=== PATIENT | female | born 1950 | race Caucasian/White ===

== ENCOUNTER 2016-12-05 13:10 | Inpatient (IN) | payer MEDICARE, BC, OTHER ==
[~2016-12-05] VITALS: Ht 160 cm; Wt 94.4 kg
[~2016-12-05 13:10] MED LIST: 1-ME1LIQ PO; CEFU1TAB20 PO; COZA100T PO; FEXO180 PO; FOLI1 PO; GUAI600 PO; LEXA20TA PO; PRED20 PO; PROT40TA PO; RIVA20 PO; VENTAER INH
[2016-12-05 13:12] VITALS: BP 182/84; PULSE 93; RESP 28; TEMP 98.4; O2SAT 100
[2016-12-05] MEDS ORDERED: ESCI20TA PO (13:57)
[2016-12-05] MEDS ORDERED: LOSA100T PO (13:57)
[2016-12-05] MEDS ORDERED: XARE20TA PO (13:57)
[2016-12-05] MEDS ORDERED: FEXO60TA36 PO (13:57)
[2016-12-05] MEDS ORDERED: SODIUM CHLOR 0.9% 1000 ML INJ 1,000 ML IV ONE (14:15)
--- NOTE | 2016-12-05 14:25 | PD ---
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 Maxi Howe with Nivolumab every 3 weeks, presents to ER with complaints of a lightheaded and tingling sensation that she gets to her head and radiates down to her chest, arms and down to her legs. Patient reports that these episodes last about 2 seconds, reports that she feels weak and dizzy after these episodes and needs to rest. Reports that she began having these episodes 1 month ago, reports that she has about 2 episodes per day. Patient reports that today, should 5 episodes of this, reports that she became scared so she came to the ER for evaluation. Patient also endorses that she has been having problems with her memory, reports overall deterioration of her memory. Patient reports that she followed up with Dr. Maxi Howe last week and had an MRI of her brain on December 02, 2016 which is currently pending [facility] Past Medical History Hx Anticoagulant Therapy: Yes (xarelto) Asthma: Yes Depression: Yes Cancer: Yes (stage IV lung cancer) Cardiovascular Problems: Yes High Cholesterol: Yes Chemotherapy: Yes (lung cancer) COPD: Yes Diminished Hearing: No Hypertension: Yes Musculoskeletal: Yes (lytic lesions) Neurologic: Yes (SCIATIC NERVE) Respiratory: Yes (copd) Immunizations Current: No Menopausal: Yes Past Surgical History Cholecystectomy: Yes Hysterectomy: Yes Social History Alcohol Use: No Tobacco Use: No Substance Use: No Allergies-Medications (Allergen,Severity, Reaction): Coded Allergies: Penicillin (Verified Allergy, Severe, 12/05/16) Reported Meds & Prescriptions Reported Meds & Active Scripts Active Reported Allergy Relief (Fexofenadine HCl) 60 Mg Tablet 180 Mg PO DAILY Losartan (Losartan Potassium) 100 Mg Tab 100 Mg PO DAILY Escitalopram (Escitalopram Oxalate) 20 Mg Tab 20 Mg PO DAILY Xarelto (Rivaroxaban) 20 Mg Tab 20 Mg PO DAILY Review of Systems General / Constitutional: No: Fever Eyes: No: Visual changes HENT: Positive: Lightheadedness, No: Headaches Cardiovascular: No: Chest Pain or Discomfort Respiratory: No: Shortness of Breath Gastrointestinal: No: Abdominal Pain Genitourinary: No: Dysuria Musculoskeletal: No: Pain Skin: No Rash Neurologic: Positive: Weakness, Paresthesia Psychiatric: No: Depression Endocrine: No: Polydipsia Hematologic/Lymphatic: No: Easy Bruising Physical Exam Narrative GENERAL: mild distress, patient upset at bedside SKIN: Focused skin assessment warm/dry. HEAD: Atraumatic. Normocephalic. EYES: Pupils equal and round. No scleral icterus. No injection or drainage. ENT: No nasal bleeding or discharge. Mucous membranes pink and moist. NECK: Trachea midline. No JVD. CARDIOVASCULAR: Regular rate and rhythm. No murmur appreciated. RESPIRATORY: No accessory muscle use. Clear to auscultation. Breath sounds equal bilaterally. GASTROINTESTINAL: Abdomen soft, non-tender, nondistended. Hepatic and splenic margins not palpable. MUSCULOSKELETAL: No obvious deformities. No clubbing. No cyanosis. No edema. NEUROLOGICAL: Awake and alert. No obvious cranial nerve deficits. Motor grossly within normal limits. Normal speech. PSYCHIATRIC: patient anxious and tearful Data Data Last Documented VS Vital Signs Date Time Temp Pulse Resp B/P Pulse Ox O2 Delivery O2 Flow Rate FiO2 12/05/16 13:50 77 17 94 Room Air 12/05/16 13:12 98.4 182/84 Orders Electrocardiogram (12/05/16 13:23) Complete Blood Count With Diff (12/05/16 13:23) Basic Metabolic Panel (Bmp) (12/05/16 13:23) Ckmb (Isoenzyme) Profile (12/05/16 13:23) Troponin I (12/05/16 13:23) Chest, Single Ap (12/05/16 13:23) Prothrombin Time / Inr (Pt) (12/05/16 13:25) Act Partial Throm Time (Ptt) (12/05/16 13:25) Urinalysis - C+S If Indicated (12/05/16 14:02) Sodium Chlor 0.9% 1000 Ml Inj (Ns 1000 M (12/05/16 14:15) Dexamethasone Inj (Decadron Inj) (12/05/16 15:00) Type And Screen (12/05/16 14:51) Vascular Poc Ultrasound (12/05/16 ) MDM Medical Decision Making Medical Screen Exam Complete: Yes Emergency Medical Condition: Yes Interpretation(s) Vital Signs Date Time Temp Pulse Resp B/P Pulse Ox O2 Delivery O2 Flow Rate FiO2 12/05/16 13:50 77 17 94 Room Air 12/05/16 13:12 98.4 93 28 182/84 100 Room Air Differential Diagnosis Differential includes ICH, seizure, metastatic disease, electrolyte abnormality , acs, arrhythmia Narrative Course Patient is an unfortunate 66 year old female with history of metastatic lung cancer, presents to emergency room with complaints of a tickling sensation that goes from her head to her chest to his arms and legs which lasts about 2 seconds at a time. Patient reports that symptoms have been ongoing for the past month and she has 2 episodes per day, reports that she had 5 episodes today. Patient reports that her doctor and oncologist Dr. Maxi Howe who ordered an MRI of her brain with and without contrast - she has not received results yet: RADS MRI was obtained: MRI from December 02, 2016 shows extensive metastic deposits in the cerebellum and cerebrum. There is a 1.4cm lesion in the right frontal lobe shows associated hemorrhage Call made to Dr. Maxi Howe Patient currently taking Xarelto 20mg daily for PE Case reviewed with Dr. Pina Perera with oncology, request decadron 4mg q 8 hours - will let Dr. Howe know of mri reports and admission Case reviewed with Dr. Negro (neurosurgery) - recommends supportive treatment at this time as patient does have extensive metastatic deposits and her cerebellum and cerebrum. Plan to admit to [facility] case reviewed with Dr. Gustafson who accepts pt to service Critical Care Narrative Aggregate critical care time was 30 minutes. Time to perform other separately billable procedures was not included in the critical care time. My time did not include minutes spent treating any other patients simultaneously or on activities that did not directly contribute to the patient's treatment. The services I provided to this patient were to treat and/or prevent clinically significant deterioration that could result in: , decompensation, deterioration I provided critical care services requiring my management, as noted below: Chart data review, documentation time, medication orders and management, vital sign assessments/reviewing monitor data, ordering and reviewing lab tests, ordering and interpreting/reviewing x-rays and diagnostic studies, care of the patient and discussion of the patient with the admitting physicians. Diagnosis Primary Impression: Intracranial hemorrhage Additional Impression: Metastatic cancer to brain Admitting Information Admitting Physician Requests: Josselyn Lamb DO Dec 05, 2016 14:25
[2016-12-05] MEDS ORDERED: DEXAMETHASONE SOD PHOS 4 MG/ML VIAL IV PUSH ONE (15:00)
[2016-12-05 15:15] LABS: BLOOD, URINE NEG (NEG); COMMENT (UR) CULT NOT INDICATED; CULTURE IF INDICATED CULT NOT INDICATED; GLUCOSE,URINE NEG (NEG); KETONE, URINE NEG (NEG); NITRITE,URINE NEG (NEG); PH, URINE 6.5 (5.0-8.5); SQUAMOUS EPITHELIAL CELL URINE 1 /hpf (0-5); URINE COLOR LIGHT-YELLOW (YELLW/STRAW)
[2016-12-05] MEDS ORDERED: LORazepam 2 MG/ML VIAL IV PUSH ONE (15:15)
[2016-12-05 15:24] LABS: AUTOMATED NEUTROPHIL # 5.4 TH/MM3 (1.8-7.7); BASOPHIL % 0.4 % (0.0-2.0); EOSINOPHIL # 0.1 TH/MM3 (0-0.4); EOSINOPHIL % 2.1 % (0.0-4.0); HEMATOCRIT 30.2 % (35.0-46.0); HEMO FLAGS DIFF FINAL; LYMPH % 6.7 % (9.0-44.0); LYMPHOCYTE # 0.4 TH/MM3 (1.0-4.8); MEAN CELL VOLUME 96.6 FL (80.0-100.0); MEAN CORPUSCULAR HGB CONC 34.2 % (32.0-36.0); MONO % 8.9 % (0.0-8.0); NEUT % 81.9 % (16.0-70.0); PLATELET COUNT 203 TH/MM3 (150-450); RED BLOOD COUNT 3.12 MIL/MM3 (4.00-5.30); RED CELL DISTRIBUTION WIDTH 15.7 % (11.6-17.2); WHITE BLOOD COUNT 6.6 TH/MM3 (4.0-11.0)
[2016-12-05 15:38] LABS: APTT (PATIENT) 35.2 SEC (24.3-30.1); INTERNATIONAL NORMALIZED RATIO 1.4 RATIO; PROTHROMBIN TIME - PATIENT 15.4 SEC (9.8-11.6)
--- NOTE | 2016-12-05 15:39 | RADRPT ---
EXAM DATE/TIME: 12/05/2016 14:43 [facility] COMPARISON: CHEST SINGLE AP, September 24, 2012, 10:12. CT THORAX W/O CONTRAST, October 06, 2015, 11:11. INDICATIONS : Chest pain MEDICAL HISTORY : Carcinoma, lung. SURGICAL HISTORY : Infusaport ENCOUNTER: Initial ACUITY: 1 day PAIN SCORE: 4/10 LOCATION: chest FINDINGS: Right IJ [id number] is present with tip overlapping the expected region of the SVC. Abdomen josé manuel us sclerotic bony metastatic lesions involving the entire visualized bony structures. It is difficult to exclude pulmonary nodules. Heart and mediastinum are unremarkable for technique. CONCLUSION: Extensive bony metastatic disease and lung nodules are difficult to exclude. Iftikhar Black MD on December 05, 2016 at 15:36 Board Certified Radiologist. This report was verified electronically.
[2016-12-05 15:56] LABS: ANION GAP 9 MEQ/L (5-15); BICARBONATE 24.1 MEQ/L (21.0-32.0); BLOOD UREA NITROGEN 19 MG/DL (7-18); CHLORIDE 105 MEQ/L (98-107); CREATINE KINASE 144 U/L (26-192); GLOMERULAR FILTRATION RATE 43 ML/MIN (>89); SODIUM (NA) 138 MEQ/L (136-145)
[2016-12-05 15:58] LABS: POTASSIUM 5.3 MEQ/L (3.5-5.1)
[2016-12-05 16:12] LABS: CKMB 0.5 NG/ML (0.5-3.6)
--- NOTE | 2016-12-05 16:37 | RADRPT ---
EXAM DATE/TIME: 12/05/2016 16:21 [facility] COMPARISON: CHEST SINGLE AP, December 05, 2016, 14:43. INDICATIONS : Tingling in throat, arm and chest. RADIATION DOSE: 31.47 CTDIvol (mGy) MEDICAL HISTORY : Cardiovascular disease. Hypertension. Carcinoma, lung.chemo SURGICAL HISTORY : Hysterectomy. Colostomy. ENCOUNTER: Initial ACUITY: 1 day PAIN SCALE: 2/10 LOCATION: cranial TECHNIQUE: Multiple contiguous axial images were obtained of the head. Using automated exposure control and adj ustment of the mA and/or kV according to patient size, radiation dose was kept as low as reasonably a chievable to obtain optimal diagnostic quality images. DICOM format image data is available electro nically for review and comparison. FINDINGS: There is an approximate 1.2 cm sclerotic metastatic focus involving the clivus. There are multip le areas of vasogenic edema involving the left cerebellum, bilateral frontal lobes and there is one a osvaldo in right frontal lobe which measures 9 mm could potentially be either slight hemorrhage within a lesion or possibly prominent gyri surrounded by edema. Metastatic disease is suspected. There is no m ass effect. CONCLUSION: There is bony metastatic disease to clivus and multiple lesions in the brain highly suspicious for me tastatic disease one of them in right frontal area could be hemorrhagic. Iftikhar Black MD on December 05, 2016 at 16:33 Board Certified Radiologist. This report was verified electronically.
--- NOTE | 2016-12-05 17:34 | HHI.HP ---
[facility] Maxi Hoew MD Admission Diagnosis Intracranial hemorrhage with metastic disease to brain Diagnoses: Chief Complaint: Tingling sensation Travel History International Travel<30 Days: No Contact w/Intl Traveler <30 Da: No Traveled to Known Affected Are: No History of Present Illness Patient is a very pleasant 66-year-old female right handed with history of metastatic lung cancer stage IV diagnosed in August 2012 with bone metastases, hypertension, pulmonary embolism on Xarelto, depression was pretty much very independent with her the past 3-4 weeks now has been complaining of tingling sensation from the shoulder radiating to the legs with occurring in flashes lasting for a few minutes associated with some chills. Patient denies any loss of consciousness. Patient with COPD complaining of occasional cough but not O2 dependent actually getting stronger. In addition to above complaints patient is also complaining of increasing memory loss. On evaluation here head CT shows mass with some hemorrhagic transformation transformation around it. Patient admitted for further evaluation. Patient looks neurological neurologically well. Review of Systems Constitutional: DENIES: Fever, Weight loss, Chills, Change in appetite Eyes: DENIES: Blurred vision, Double Vision Ears, nose, mouth, throat: DENIES: Tinnitus, Ear Pain, Epistaxis, Odynophagia Respiratory: DENIES: Cough, Hemoptysis, Sputum production, Shortness of breath Cardiovascular: DENIES: Chest pain, Palpitations, Dyspnea on Exertion, Lower Extremity Edema, Orthopnea Gastrointestinal: DENIES: Black stools, Bloody stools, Difficulty Swallowing, Anorexia Genitourinary: DENIES: Urgency, Hematuria, Vaginal discharge Musculoskeletal: DENIES: Joint pain, Stiffness Integumentary: DENIES: Pruritus Hematologic/lymphatic: DENIES: Bruising Immunologic/allergic: DENIES: Urticaria Neurologic: DENIES: Headache, Speech Problems, Tremor Psychiatric: DENIES: Suicidal Ideation, Homicidal Ideation Past Family Social History Past Medical History Depression Metastatic lung cancer Pulmonary embolism Past Surgical History Hysterectomy Ovarian resection Gallbladder surgery Bilateral carpal tunnel surgery Plantar fasciitis surgery Cataract surgery Reported Medications Losartan 100 mg daily Xarelto 20 mg daily for the past 4 years Lexapro 20 mg daily Hamida when necessary Allergies: Coded Allergies: Penicillin (Verified Allergy, Severe, 12/05/16) Family History Noncontributory Physical Exam Vital Signs Vital Signs Date Time Temp Pulse Resp B/P Pulse Ox O2 Delivery O2 Flow Rate FiO2 12/05/16 13:50 77 17 94 Room Air 12/05/16 13:12 98.4 93 28 182/84 100 Room Air Physical Exam GENERAL: This is a well-nourished, well-developed patient, in no apparent distress. SKIN: No rashes, ecchymoses or lesions. Cool and dry. HEAD: Atraumatic. Normocephalic. No temporal or scalp tenderness. EYES: Pupils equal round and reactive. Extraocular motions intact. No scleral icterus. No injection or drainage. ENT: Nose without bleeding, purulent drainage or septal hematoma. Throat without erythema, tonsillar hypertrophy or exudate. Uvula midline. Airway patent. NECK: Trachea midline. No JVD or lymphadenopathy. Supple, nontender, no meningeal signs. CARDIOVASCULAR: Regular rate and rhythm without murmurs, gallops, or rubs. RESPIRATORY: Clear to auscultation. Breath sounds equal bilaterally. No wheezes , rales, or rhonchi. GASTROINTESTINAL: Abdomen soft, non-tender, nondistended. No hepato-splenomegaly , or palpable masses. No guarding. MUSCULOSKELETAL: Extremities without clubbing, cyanosis, or edema. No joint tenderness, effusion, or edema noted. No calf tenderness. Negative Homans sign bilaterally. NEUROLOGICAL: Awake and alert. Cranial nerves II through XII intact. Motor and sensory grossly within normal limits. Five out of 5 muscle strength in all muscle groups. Normal speech. Laboratory Laboratory Tests Test 12/05/16 12/05/16 14:30 14:55 Urine Color LIGHT-YELLOW Urine Turbidity CLEAR Urine pH 6.5 Urine Specific Porum 1.008 Urine Protein TRACE Urine Glucose (UA) NEG Urine Ketones NEG Urine Occult Blood NEG Urine Nitrite NEG Urine Bilirubin NEG Urine Urobilinogen LESS THAN 2.0 Urine Leukocyte Esterase NEG Urine RBC LESS THAN 1 Urine WBC LESS THAN 1 Urine Squamous Epithelial 1 Cells Microscopic Urinalysis Comment CULT NOT INDICATED White Blood Count 6.6 Red Blood Count 3.12 Hemoglobin 10.3 Hematocrit 30.2 Mean Corpuscular Volume 96.6 Mean Corpuscular Hemoglobin 33.0 Mean Corpuscular Hemoglobin 34.2 Concent Red Cell Distribution Width 15.7 Platelet Count 203 Mean Platelet Volume 6.6 Neutrophils (%) (Auto) 81.9 Lymphocytes (%) (Auto) 6.7 Monocytes (%) (Auto) 8.9 Eosinophils (%) (Auto) 2.1 Basophils (%) (Auto) 0.4 Neutrophils # (Auto) 5.4 Lymphocytes # (Auto) 0.4 Monocytes # (Auto) 0.6 Eosinophils # (Auto) 0.1 Basophils # (Auto) 0.0 CBC Comment DIFF FINAL Differential Comment Prothrombin Time 15.4 Prothromb Time International 1.4 Ratio Activated Partial 35.2 Thromboplast Time Sodium Level 138 Potassium Level 5.3 Chloride Level 105 Carbon Dioxide Level 24.1 Anion Gap 9 Blood Urea Nitrogen 19 Creatinine 1.25 Estimat Glomerular Filtration 43 Rate Random Glucose 101 Calcium Level 9.0 Total Creatine Kinase 144 Creatine Kinase MB 0.5 Troponin I LESS THAN 0.02 Blood Type O POSITIVE Result Diagram: 12/05/16 1455 12/05/16 1455 Imaging Last Impressions Chest X-Ray 12/05/16 1323 Signed Impressions: Service Date/Time: Monday, December 05, 2016 14:43 - CONCLUSION: Extensive bony metastatic disease and lung nodules are difficult to exclude. Iftikhar Black MD Head CT 12/05/16 0000 Signed Impressions: Service Date/Time: Monday, December 05, 2016 16:21 - CONCLUSION: There is bony metastatic disease to clivus and multiple lesions in the brain highly suspicious for metastatic disease one of them in right frontal area could be hemorrhagic. Iftikhar Black MD Assessment and Plan Assessment and Plan 66 year old female right handed with Stage IV lung cancer with brain metastases with suspicious small amount of hemorrhage Increasing memory loss neuro exam with generalized weakness but- mainly nonfocal Neurology consult Will hold Xarelto. Check neuro vital signs every shift. Patient started on dexamethasone 4 mg every 8. Consult hematology-discussed with Dr. Perera Get an EEG HypertensioN Acute kidney injury Mild hyperkalemia Gentle fluids. Clonidine when necessary Hold Losartan 100 mg daily. For now due to mildly elevated potassium History of depression. Continue Lexapro in the next few days. Discussed with patient SCD s Physician Certification 2 Midnight Certification Type: Admission for Inpatient Services Order for Inpatient Services The services are ordered in accordance with Medicare regulations or non- Medicare payer requirements, as applicable. In the case of services not specified as inpatient-only, they are appropriately provided as inpatient services in accordance with the 2-midnight benchmark. Estimated LOS (days): 3 days is the estimated time the patient will need to remain in the hospital, assuming treatment plan goals are met and no additional complications. Post-Hospital Plan: Not yet determined Isabel Gustafson MD Dec 05, 2016 17:34
[2016-12-05] MEDS: SODIUM CHLOR 0.9% 1000 ML INJ 1,000 ML IV SCH (18:00)
[2016-12-05] MEDS ORDERED: cloNIDine HCL 0.1 MG TAB PO PRN (18:00)
[2016-12-05 18:45] VITALS: BP 133/75; PULSE 85; RESP 19; O2SAT 99
[2016-12-05 19:30] VITALS: BP 150/67; PULSE 79; RESP 16; O2SAT 95
[2016-12-05 21:00] VITALS: BP 149/73; PULSE 83; RESP 18; TEMP 98.1; O2SAT 96
[2016-12-05] MEDS: levETIRAcetam 500 MG TAB PO SCH (21:01)
[2016-12-05 21:24] VITALS: PULSE 85
[2016-12-05 21:30] VITALS: PULSE 83
[2016-12-05] MEDS: DEXAMETHASONE SOD PHOS 4 MG/ML VIAL IV PUSH SCH (22:40)
--- NOTE | 2016-12-05 22:41 | MB ---
cc: J CARLOS ABREU M.D. DATE OF CONSULTATION 12/05/2016 HISTORY The patient is a 66-year-old woman with a history of known lung cancer with mets to the left humerus, spine, pelvis who had cataracts done recently and she has actually had cancer known for 7 years. The last 6 weeks she has had about two to five times a day a feeling of tingling sensation which seems to start in her neck and go down her legs, and some nausea after that, might last about 30 seconds. No odd smells, tastes or gloria vu. Never had a definite grand mal seizure. She has not had any headaches. She evidently had an MRI last which showed mets to the brain. PAST MEDICAL HISTORY 1. She has known metastatic lung cancer stage IV. 2. Hypertension. 3. Pulmonary embolism on Xarelto. 4. Depression. 5. She has some COPD, not O2 dependent. MEDICATIONS 1. Losartan. 2. Xarelto. 3. Lexapro. 4. Hamida. REVIEW OF SYSTEMS Denied , diabetes, hypercholesterolemia, DC, CABG, stenting, heart problems, renal, hepatic or thyroid disease, lupus, ulcer, seizure or stroke. SOCIAL HISTORY Not a smoker, although she was remotely. She is not a drinker. Lives with her . FAMILY HISTORY Positive cancer in her mother. Negative for seizure or stroke. PHYSICAL EXAMINATION VITAL SIGNS: Afebrile. 93, 28, 182/84 to 150/67. NECK: There were no carotid bruits. CARDIOVASCULAR: Heart was regular rhythm. I do not detect a murmur. NEUROLOGIC: Pupils are equal, status post cataracts. Right disk is sharp. Visual dhillon are full. Extraocular intact without nystagmus. Face is symmetric with normal station. Tongue was midline. No drift. Normal strength in upper and lower extremities bilaterally. Toes downgoing bilaterally. DTRs trace throughout. Pinprick is intact throughout. She is not ataxic on [id number]. Speech is fluent. She is not aphasic. Knows the day of the week. LABORATORY DATA CBC is normal. UA is negative. Basic metabolic profile potassium 5.3 otherwise normal. GFR is 1.2. Troponin negative. CEA elevated at 60. Thyroid normal. PTT 35. IMAGING A chest x-ray bony mets, extensive, lung nodules difficult to exclude. CT scan of brain a right frontal edema consistent with met. Done without contrast, 1.2 cm sclerotic metastatic lesion to the clivus. Left cerebellum, bilateral frontal lobe and right frontal lobe edema slight hemorrhage within that. Cannot pull up her MRI from recently. IMPRESSION Possible seizures ____ out of the mets. I cannot pull up her MRI done at [place] here in the hospital. If she has not had an MRI of her cervical and thoracic and lumbosacral spine recently I would recommend that with the mets. Make sure there is no impending cord compression. For now start her on some Keppra and check an EEG. We should have oncology see her here. She will need some XRT. This is the first known brain mets that she has had. Also start her on some Decadron with the edema in the right frontal lobe. She is of course at increased risk for hemorrhage into the brain on the Xarelto, whether that needs to be continued at this time, I would defer to the med team. Overall she actually looks fairly well neurologically and I would defer to the oncology team if she needs further MRIs of her spine. MD KYLAH Miller/JENNIFER /7:59 PM /10:29 PM
[2016-12-06] VITALS (8 sets, daily range): BP systolic 127–147; BP diastolic 62–74; PULSE 61–89; RESP 16–20; TEMP 95.9–98; O2SAT 95–97
[2016-12-06 05:44] LABS: ALKALINE PHOSPHATASE 63 U/L (45-117); ALT (GPT) 13 U/L (10-53); ANION GAP 8 MEQ/L (5-15); AST (GOT) 12 U/L (15-37); BICARBONATE 24.6 MEQ/L (21.0-32.0); BLOOD UREA NITROGEN 22 MG/DL (7-18); CHLORIDE 110 MEQ/L (98-107); GLOMERULAR FILTRATION RATE 41 ML/MIN (>89); SODIUM (NA) 143 MEQ/L (136-145); TOTAL BILIRUBIN ADULT 0.2 MG/DL (0.2-1.0)
[2016-12-06] MEDS: DEXAMETHASONE SOD PHOS 4 MG/ML VIAL IV PUSH SCH (06:04)
--- NOTE | 2016-12-06 06:57 | MB ---
cc: OPHELIA MUKHERJEE DATE OF 1950. DATE OF CONSULTATION December 05, 2016 REASON FOR CONSULTATION Patient with a history of metastatic lung cancer who presents with mental status changes. HISTORY OF PRESENT ILLNESS This is a 66-year-old female who has a history of jlr-krujz-xqew lung cancer. This is metastatic disease. She has undergone multiple lines of treatment. She is currently being treated with IV nivolumab which is an immunotherapy drugs. She has been on Opdivo and nivolumab for the past two months. She sees Dr. Maxi Howe in the oncology clinic and was last seen on 12/01/2016. She was diagnosed with metastatic jno-smabn-sbgd lung cancer in September of 2012 after she developed bilateral pulmonary emboli. Imaging confirmed metastatic disease. She was treated with carboplatin, Alimta and Avastin and then she was on maintenance therapy with Alimta and Avastin. She then developed progressive disease and received radiation to the L3 area into the left acetabulum. She has been receiving IV nivolumab. On her recent visit in the clinic she complained of a tingling sensation in the base of her head, going down to her spine as well as memory problems and MRI of the brain with and without contrast was ordered. The patient now presents to the emergency room with worsening of these symptoms. She had CT scan of the brain with contrast. This revealed an approximately 1.2 cm sclerotic metastatic focus involving the clivus. There were multiple areas of vasogenic edema involving the left cerebellum and bilateral frontal lobes. There was one area in the right frontal lobe which measured 9 mm. The patient is currently awake and alert. She does not have any focal symptoms. She denies any headaches. She has been experiencing intermittent nausea. REVIEW OF SYSTEMS A comprehensive 14-point review of systems was completed which is negative except as described in the HPI. PAST MEDICAL HISTORY 1. Edd-murkf-qpai lung cancer which is metastatic. 2. History of depression. 3. Pulmonary embolism. PAST SURGICAL HISTORY 1. Hysterectomy. 2. Ovarian resection. 3. Gallbladder surgery. 4. Carpal tunnel surgery. 5. Plantar fasciitis. 6. Cataract surgery. MEDICATIONS 1. Losartan 100 mg daily. 2. Xarelto 20 mg p.o. daily. 3. Lexapro 20 mg daily. 4. Hamida as needed. ALLERGIES SHE IS ALLERGIC TO PENICILLIN. FAMILY HISTORY Reviewed and it is noncontributory to this admission. SOCIAL HISTORY She does not smoke cigarettes. No illicit drug use. No alcohol. She is an ex-smoker. PHYSICAL EXAMINATION VITAL SIGNS: Blood pressure is 149/73, pulse is in the 80s, temperature is 98.1, O2 sats are 95% on room air. GENERAL: Well-developed, well-nourished female in no apparent distress. HEENT: Pupils are equal, round, reactive to light. EOMI. No oral thrush. No oral lesions. NECK: Supple. No JVD, no bruits. No lymphadenopathy. CHEST: Clear to auscultation bilaterally. CARDIAC: S1-S2. Regular rate and rhythm. ABDOMEN: Soft, nontender, nondistended. Bowel sounds are present. EXTREMITIES: Without any edema, erythema or cyanosis. SKIN: Without any petechiae, lesion or bruises. NEURO: No focal deficits. PSYCHIATRIC: Mood and affect is appropriate. LABORATORY DATA WBC 6.6, hemoglobin 10.3, MCV 96.6, platelet count 203. Serum chemistries show sodium of 138, potassium 5.3, chloride 105, CO2 24.1, BUN is 19, creatinine is 1.25, calcium is 9, total CK is 144. Troponin is less than 0.02. Coags - PT of 115.4, INR 1.4, PTT 35.2. IMAGING STUDIES CT of the head was reviewed. Chest x-ray was also reviewed which showed extensive bony metastatic disease and lung nodules. ASSESSMENT AND PLAN This is a 66-year-old female with a history of Stage IV lung cancer with metastatic disease to the bone who presents with increasing memory problems, generalized weakness and tingling sensations at the base of her head. CT scans and recent MRI shows multiple metastatic lesions to the brain. 1. Multiple metastatic lesions to the brain as demonstrated by the CT scan. She is also has metastatic bony disease to the clivus. I discussed the case with Dr. Alvarez in the emergency department. We will start this patient on dexamethasone 4 mg IV q.8 hours. We will also place her on Keppra for seizure prophylaxis. I have discussed this case with Dr. Shell. The patient is known to him. The patient will need XRT treatments to the brain. I have extensively discussed the situation with the patient. Her family members were present during this conversation. The patient is currently neurologically intact. I have explained to her that once she is stabilized, we can probably discharge her home and she can receive radiation treatment as an outpatient. Dr. Shell will see the patient tomorrow. She will need restaging scans to assess for metastatic disease in the chest, abdomen and pelvis. I will defer further management of her cancer to her oncologist, Dr. Howe. 2. Anemia which is normocytic. Obtain anemia studies. Thank you for allowing me to participate in the care of this patient. I will continue to follow this patient along. Dr. Howe will return on Tuesday to assume care of this patient. MD BRIDGET Last/AILIN /11:39 PM /6:47 AM
--- NOTE | 2016-12-06 08:41 | HHI.PR ---
Objective Vital Signs Date Time Temp Pulse Resp B/P Pulse Ox O2 Delivery O2 Flow Rate FiO2 12/06/16 04:00 96.2 89 17 147/67 95 12/06/16 04:00 61 12/06/16 00:02 71 12/06/16 00:00 98.0 76 18 141/67 97 12/05/16 21:30 83 12/05/16 21:24 85 12/05/16 21:00 98.1 83 18 149/73 96 12/05/16 19:30 79 16 150/67 95 Room Air 12/05/16 18:45 85 19 133/75 99 Room Air 12/05/16 13:50 77 17 94 Room Air 12/05/16 13:12 98.4 93 28 182/84 100 Room Air I/O 12/05/16 12/05/16 12/05/16 12/06/16 12/06/16 12/06/16 07:00 15:00 23:00 07:00 15:00 23:00 Intake Total 240 ml 1274 ml Balance 240 ml 1274 ml Intake Oral 240 ml 480 ml IV Total 794 ml # Voids 2 1 Result Diagram: 12/05/16 1455 12/06/16 0430 Objective Remarks awake alert nad Assessment and Plan Assessment and Plan imp no more spells on keppra fu eeg see my consult note for recommendations Faisal Mccoy MD Dec 06, 2016 08:41
[2016-12-06] MEDS: PANTOPRAZOLE SOD 40 MG DELAYED RELEASE TAB PO SCH (09:00)
[2016-12-06] MEDS: levETIRAcetam 500 MG TAB PO SCH ×2 (09:41→21:44)
[2016-12-06] MEDS: SODIUM CHLOR 0.9% 1000 ML INJ 1,000 ML IV SCH (09:43)
--- NOTE | 2016-12-06 10:48 | HHI.PR ---
Subjective Remarks feels great no more spells Objective Vitals Vital Signs Date Time Temp Pulse Resp B/P Pulse Ox O2 Delivery O2 Flow Rate FiO2 12/06/16 08:40 96.5 71 16 135/74 95 12/06/16 04:00 96.2 89 17 147/67 95 12/06/16 04:00 61 12/06/16 00:02 71 12/06/16 00:00 98.0 76 18 141/67 97 12/05/16 21:30 83 12/05/16 21:24 85 12/05/16 21:00 98.1 83 18 149/73 96 12/05/16 19:30 79 16 150/67 95 Room Air 12/05/16 18:45 85 19 133/75 99 Room Air 12/05/16 13:50 77 17 94 Room Air 12/05/16 13:12 98.4 93 28 182/84 100 Room Air I/O 12/05/16 12/05/16 12/05/16 12/06/16 12/06/16 12/06/16 06:59 14:59 22:59 06:59 14:59 22:59 Intake Total 240 ml 1274 ml Balance 240 ml 1274 ml Intake Oral 240 ml 480 ml IV Total 794 ml # Voids 2 1 Result Diagram: 12/05/16 1455 12/06/16 0430 Imaging Last Impressions Chest X-Ray 12/05/16 1323 Signed Impressions: Service Date/Time: Monday, December 05, 2016 14:43 - CONCLUSION: Extensive bony metastatic disease and lung nodules are difficult to exclude. Iftikhar Black MD Head CT 12/05/16 0000 Signed Impressions: Service Date/Time: Monday, December 05, 2016 16:21 - CONCLUSION: There is bony metastatic disease to clivus and multiple lesions in the brain highly suspicious for metastatic disease one of them in right frontal area could be hemorrhagic. Iftikhar Black MD Objective Remarks awake alert, oriented x 3 anicteric lungs clear regular rhythm abdomen soft, nontender extremities no edema neuro exam- unremarkable A/P Assessment and Plan 66 year old female right handed with Stage IV lung cancer with brain metastases with suspicious small amount of hemorrhage Increasing memory loss neuro exam with generalized weakness but- mainly nonfocal Xarelto.discontinued Check neuro vital signs every shift. Patient started on dexamethasone [address] Howe ff XRT- Dr. Shell consulted Get an EEG HypertensioN Acute kidney injury Mild hyperkalemia Gentle fluids. Clonidine when necessary Hold Losartan 100 mg daily. due to mildly elevated potassium and MARY change to Amlodpine 5 mg po daily History of depression. Continue Excitalopram Discussed with patient SCD s Isabel Gustafson MD Dec 06, 2016 10:48
[2016-12-06] MEDS ORDERED: PILL SPLITTER OTHER PRN (11:30)
--- NOTE | 2016-12-06 13:04 | PD.ONC.PN ---
Subjective Subjective Remarks Afebrile overnight. Patient resting in bed in nad. Denies headache. Objective Data Date Time Temp Pulse Resp B/P Pulse Ox O2 Delivery O2 Flow Rate FiO2 12/06/16 12:56 95.9 78 16 142/74 96 12/06/16 08:40 96.5 71 16 135/74 95 12/06/16 04:00 96.2 89 17 147/67 95 12/06/16 04:00 61 12/06/16 00:02 71 12/06/16 00:00 98.0 76 18 141/67 97 12/05/16 21:30 83 12/05/16 21:24 85 12/05/16 21:00 98.1 83 18 149/73 96 12/05/16 19:30 79 16 150/67 95 Room Air 12/05/16 18:45 85 19 133/75 99 Room Air 12/05/16 13:50 77 17 94 Room Air 12/05/16 13:12 98.4 93 28 182/84 100 Room Air Result Diagram: 12/05/16 1455 12/06/16 0430 Laboratory Results Laboratory Tests Test 12/05/16 12/05/16 12/05/16 12/06/16 14:30 14:55 19:02 04:30 Urine Color LIGHT-YELLOW Urine Turbidity CLEAR Urine pH 6.5 Urine Specific [place] 1.008 Urine Protein TRACE mg/dL Urine Glucose (UA) NEG mg/dL Urine Ketones NEG mg/dL Urine Occult Blood NEG Urine Nitrite NEG Urine Bilirubin NEG Urine Urobilinogen LESS THAN 2.0 MG/DL Urine Leukocyte Esterase NEG Urine RBC LESS THAN 1 /hpf Urine WBC LESS THAN 1 /hpf Urine Squamous Epithelial 1 /hpf Cells Microscopic Urinalysis Comment CULT NOT INDICATED White Blood Count 6.6 TH/MM3 Red Blood Count 3.12 MIL/MM3 Hemoglobin 10.3 GM/DL Hematocrit 30.2 % Mean Corpuscular Volume 96.6 FL Mean Corpuscular Hemoglobin 33.0 PG Mean Corpuscular Hemoglobin 34.2 % Concent Red Cell Distribution Width 15.7 % Platelet Count 203 TH/MM3 Mean Platelet Volume 6.6 FL Neutrophils (%) (Auto) 81.9 % Lymphocytes (%) (Auto) 6.7 % Monocytes (%) (Auto) 8.9 % Eosinophils (%) (Auto) 2.1 % Basophils (%) (Auto) 0.4 % Neutrophils # (Auto) 5.4 TH/MM3 Lymphocytes # (Auto) 0.4 TH/MM3 Monocytes # (Auto) 0.6 TH/MM3 Eosinophils # (Auto) 0.1 TH/MM3 Basophils # (Auto) 0.0 TH/MM3 CBC Comment DIFF FINAL Differential Comment Prothrombin Time 15.4 SEC Prothromb Time International 1.4 RATIO Ratio Activated Partial 35.2 SEC Thromboplast Time Sodium Level 138 MEQ/L 143 MEQ/L Potassium Level 5.3 MEQ/L 4.0 MEQ/L Chloride Level 105 MEQ/L 110 MEQ/L Carbon Dioxide Level 24.1 MEQ/L 24.6 MEQ/L Anion Gap 9 MEQ/L 8 MEQ/L Blood Urea Nitrogen 19 MG/DL 22 MG/DL Creatinine 1.25 MG/DL 1.29 MG/DL Estimat Glomerular Filtration 43 ML/MIN 41 ML/MIN Rate Random Glucose 101 MG/DL 143 MG/DL Calcium Level 9.0 MG/DL 8.7 MG/DL Total Creatine Kinase 144 U/L Creatine Kinase MB 0.5 NG/ML Troponin I LESS THAN 0.02 NG/ML Blood Type O POSITIVE Antibody Screen POSITIVE Crossmatch Leukocyte-Reduced Red Blood Cells Blood Bank Comment Antibody Identification Anti-C Total Bilirubin 0.2 MG/DL Aspartate Amino Transf 12 U/L (AST/SGOT) Alanine Aminotransferase 13 U/L (ALT/SGPT) Alkaline Phosphatase 63 U/L Total Protein 6.9 GM/DL Albumin 3.1 GM/DL Imaging Studies Last 24 hours Impressions Chest X-Ray 12/05/16 1323 Signed Impressions: Service Date/Time: Monday, December 05, 2016 14:43 - CONCLUSION: Extensive bony metastatic disease and lung nodules are difficult to exclude. Iftikhar Black MD Administered Medications Medications (Trade) Dose Ordered Sig/Lucinda Route PRN Reason Start Time Stop Time Status Last Admin Dose Admin Dexamethasone Sodium Phosphate 4 mg 4 mg Q8HR IV PUSH 12/05/16 22:00 12/06/16 06:04 Sodium Chloride (NS 1000 ml Inj) 1,000 ml @ 42 mls/hr [id number] IV 12/05/16 18:00 12/06/16 09:43 Levetriacetam (Keppra) 500 mg Q12H PO 12/05/16 20:00 12/06/16 09:41 Pantoprazole Sodium (Protonix) 40 mg DAILY PO 12/06/16 09:00 12/06/16 09:00 Objective Remarks GENERAL: Middle aged female upright in bed in nad. SKIN: Warm and dry. HEAD: Normocephalic. EYES: No scleral icterus. No injection or drainage. NECK: Supple, trachea midline. CARDIOVASCULAR: Regular rate and rhythm RESPIRATORY: diminished at bases anterior dhillon clear. GASTROINTESTINAL: Abdomen soft, non-tender, nondistended. EXTREMITIES: No cyanosis NEUROLOGICAL: awake and alert, normal speech, moving all extremities. Assessment/Plan Assessment 66-year-old female with metastatic lung cancer with newly found brain mets Plan 1. multiple brain mets: will switch Decadron to PO and add Protonix. Dr. Shell with radiation oncology to see and will start brain XRT 2. continue Keppra 3. hold Xarelto d/t hemorrhagic brain met Attending Statement The exam, history, and the medical decision-making described in the above note were completed with the assistance of the mid-level provider. I reviewed and agree with the findings presented. I attest that I had a [id number] encounter with the patient on the same day, and personally performed and documented my assessment and findings in the medical record. Neurologically doing better discussed case with Dr. Shell IV Decadron converted to PO On Keppra for seizure prophylaxis d/w rn Dr. Howe to see patient on Tuesday Arely Valero Dec 06, 2016 13:03 Cyrus Perera MD Dec 06, 2016 22:16
[2016-12-06] MEDS: ESCITALOPRAM OXALATE 20 MG TAB PO SCH (13:35)
[2016-12-06] MEDS: DEXAMETHASONE 4 MG TAB PO SCH ×2 (13:36→21:44)
[2016-12-06] MEDS: amLODIPine BESYLATE 5 MG TAB PO SCH (13:36)
--- NOTE | 2016-12-06 17:15 | MG ---
cc: LAURA BRISENO MD Lab No: Date: 12/06/2016 Age: Sex: F Race: DATE OF [address] Mccoy. MEDICAL HISTORY 1. Lightheadedness. 2. Tingling sensation of the chest, arms and legs. 3. Hypertension. 4. Dizziness. 5. Asthma. 6. Depression. 7. Lung cancer. 8. Hypercholesterolemia. 9. Arthritis. 10. Chemotherapy. 11. COPD. MEDICATIONS: 1. Decadron. 2. Keppra. DESCRIPTION The background activity is 8-9 Hz alpha. There is excessive muscle, swallowing and electrode artifacts noted during the EEG recording. During the recording the patient became drowsy with drop out of the posterior background rhythm and slowing to the theta range with transitioning to stage II sleep, appearance of vertex wave K complexes and sleep spindles. Photic stimulation did not elicit a driving response. Hyperventilation was not done. There were no electrographic seizures or epileptiform discharges noted during the recording. INTERPRETATION This is an awake and sleep EEG recording, contaminated with excessive artifacts. There is no ictal activity noted. Absence of electrographic seizures or epileptiform discharges does not rule out a diagnosis of epilepsy. Clinical correlation is recommended MD HELIO Shaw/JENNIFER /4:38 PM /5:14 PM MTDAltaf
--- NOTE | 2016-12-06 19:36 | EKG ---
Date Performed: 12/05/2016 Time Performed: 13:28:14 PTAGE: 66 years EKG: Sinus rhythm NORMAL ECG PREVIOUS TRACING : 10/06/2015 10.48.10 Since previous tracing, no significant change noted DOCTOR: Sarai Crandall Interpretating Date/Time 12/06/2016 19:35:36
[2016-12-07 00:33] VITALS: BP 110/57; PULSE 73; RESP 20; TEMP 98.2; O2SAT 94
[2016-12-07 05:34] VITALS: BP_SYST 112; BP_SYST 157; BP_DIAS 54; BP_DIAS 68; PULSE 67; PULSE 68; RESP 18; TEMP 98.3; O2SAT 91; O2SAT 95
[2016-12-07] MEDS: DEXAMETHASONE 4 MG TAB PO SCH ×2 (05:50→13:46)
[2016-12-07] MEDS: SODIUM CHLOR 0.9% 1000 ML INJ 1,000 ML IV SCH (05:54)
--- NOTE | 2016-12-07 07:36 | PD.ONC.PN ---
Subjective Subjective Remarks tearful and frightened and thought that was imminent as suggested by the arrival of multiple family member. no neurologic problems at present Objective Data Date Time Temp Pulse Resp B/P Pulse Ox O2 Delivery O2 Flow Rate FiO2 12/07/16 05:34 98.3 67 18 112/54 91 12/07/16 00:33 98.2 73 20 110/57 94 12/06/16 22:26 82 12/06/16 22:24 18 12/06/16 21:35 97.9 79 20 127/62 12/06/16 16:00 97.1 80 16 138/68 95 12/06/16 12:56 95.9 78 16 142/74 96 12/06/16 08:40 96.5 71 16 135/74 95 Result Diagram: 12/05/16 1455 12/06/16 0430 Administered Medications Medications (Trade) Dose Ordered Sig/Lucinda Route PRN Reason Start Time Stop Time Status Last Admin Dose Admin Sodium Chloride (NS 1000 ml Inj) 1,000 ml @ 42 mls/hr [id number] IV 12/05/16 18:00 12/07/16 05:54 Levetriacetam (Keppra) 500 mg Q12H PO 12/05/16 20:00 12/06/16 21:44 Pantoprazole Sodium (Protonix) 40 mg DAILY PO 12/06/16 09:00 12/06/16 09:00 Amlodipine Besylate (Norvasc) 2.5 mg DAILY PO 12/06/16 11:30 12/06/16 13:36 Escitalopram Oxalate (Lexapro) 20 mg DAILY PO 12/06/16 11:30 12/06/16 13:35 Dexamethasone (Decadron) 4 mg Q8HR PO 12/06/16 14:00 12/07/16 05:50 Oxycodone HCl (Roxicodone) 5 mg Q8H PRN PO pain >5 12/06/16 20:15 12/06/16 21:44 Objective Remarks GENERAL: Well-nourished, well-developed patient. SKIN: Warm and dry. HEAD: Normocephalic. EYES: No scleral icterus. No injection or drainage. NECK: Supple, trachea midline. No JVD or lymphadenopathy. LYMPHATIC: No adenopathy. CARDIOVASCULAR: Regular rate and rhythm without murmurs. RESPIRATORY: Breath sounds equal bilaterally. No accessory muscle use. GASTROINTESTINAL: Abdomen soft, non-tender, nondistended. EXTREMITIES: No cyanosis, or edema. MUSCULOSKELETAL: Adequate muscle tone. NEUROLOGICAL: No obvious focal deficit. Awake, alert, and oriented x3. 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 Shell yesterday and this am. She can be discharged home after going down to XRT today and she will proceed with outpatient whole brain radiation therapy given number of mets. I want to see her next week -would discharge on decadron 4 mg po tid which I will taper as outpatient, keppra to prevent seizures and protonix. will not resume Xarelto due to the fact that one of the CN lesions is hemorrhagic. continue Lexapro for depression. - I do not believe that is imminent but now after many years with metastatic disease her prognosis is poor. - she is to stay active to try to prevent DVT which occurred years ago and led to PE. THANKS FOR THE HELP. Maxi Howe MD Dec 07, 2016 07:36
[2016-12-07 07:50] VITALS: BP 131/68; PULSE 66; RESP 20; TEMP 96.8; O2SAT 93
[2016-12-07] MEDS: levETIRAcetam 500 MG TAB PO SCH (08:00)
[2016-12-07] MEDS: PANTOPRAZOLE SOD 40 MG DELAYED RELEASE TAB PO SCH (08:56)
[2016-12-07] MEDS: amLODIPine BESYLATE 5 MG TAB PO SCH (08:56)
[2016-12-07] MEDS: ESCITALOPRAM OXALATE 20 MG TAB PO SCH (09:00)
[2016-12-07 11:30] VITALS: BP 140/69; PULSE 76; RESP 20; TEMP 96.1; O2SAT 95
--- NOTE | 2016-12-07 13:01 | RC ---
cc: CHAYITO SANTOS ALVARO MD KHAN, AWAIS DATE OF SERVICE 1950 DATE OF CONSULTATION 12/06/2016. REFERRING PHYSICIAN Dr. Santos/Dilma DIAGNOSIS Metastatic upz-cdppr-hsmp carcinoma of the lung. STAGE Stage IV CHIEF COMPLAINT Partial seizures, petit mal. REASON FOR VISIT The patient is being evaluated for palliative radiotherapeutic treatment options. HISTORY OF PRESENT ILLNESS This is a 66-year white female known to me as I treated her with radiation therapy to the left shoulder, to the L-spine and to the left hip completing treatments on 05/14/2016. The patient has continued treatments with Dr. Santos. It appears from the records and from the patient that she started having symptoms on the weekend were she was staring blankly and could not function. These happened about four times on Tuesday. The patient says that going back to October, she felt that there were some changes there. The patient had a recent MRI of the brain which showed metastatic disease. The patient, because of the above symptoms, was brought to the emergency room and has been admitted. A radiation oncology consult has been placed for palliative radiation therapy. I have discussed this case personally with both Dr. Santos today as well as Dr. Perera. The patient is being consulted for palliative radiotherapy to the brain. PAST MEDICAL HISTORY 1. As above. 2. Also history of blood clot in 2012. 3. Initial diagnosis of cancer in 2012. 4. Cataract surgery in 2015. 5. History of breast biopsy. 6. Colonoscopy in 2005. 7. Hysterectomy in 1988. 8. Knee surgery in 2000. MEDICATIONS As per hospital chart includes 1. Dexamethasone. 2. Norvasc. 3. Lexapro. 4. Protonix. 5. Keppra. 6. Catapres. ALLERGIES No known allergies. FAMILY HISTORY Mother with breast carcinoma. Granddaughter with some sort of carcinoma of the left eye. SOCIAL HISTORY The patient smoked a pack of cigarettes per day for 40 years, quit about 22 years ago. ETOH intake socially. REVIEW OF SYSTEMS A 14-point review of system reviewed with the patient. CONSTITUTIONAL: The patient does not complain of any increased fatigue. Good appetite. ALLERGIES: Has not had allergic reaction recently. EYES: Unremarkable. ENT: Unremarkable. NECK: Unremarkable. INTEGUMENTARY: Unremarkable. CARDIOVASCULAR: Unremarkable. Denies any chest pain, clinical signs of DE. RESPIRATORY: Remarkable denies any hemoptysis or cough. GASTROINTESTINAL: Unremarkable. GENITOURINARY: Unremarkable. MUSCULOSKELETAL: Unremarkable. NEUROLOGICAL: The patient states that after being admitted to the hospital she has not had any more of those petit mal seizures. The patient denies any changes in cognitive functions, motor functions or personality. She does admit to short-term memory loss. PSYCHIATRIC: Unremarkable. ENDOCRINE: Unremarkable. HEMATOLOGIC: Unremarkable. DERMATOLOGIC: Unremarkable. PHYSICAL EXAMINATION GENERAL: The patient is oriented x 3, in no acute distress at the present time. VITAL SIGNS: Temperature 97.1, pulse 88, respiratory rate 16, blood pressure 138/68. Pulse ox 95%. LUNGS: To auscultation bilaterally, the lungs were clear to auscultation with appropriate inspiratory and expiratory effort. HEART: Heart was regular in rate and rhythm, without murmurs. NECK: Palpation of the neck and bilateral supraclavicular areas are free. ABDOMEN: Palpation of the abdominal cavity reveals no hepatosplenomegaly, no pain elicited. EXTREMITIES: No lower extremity edema detected. NEUROLOGICAL: To neurologic examination no neurological deficit detected. Cognitive functions are preserved. Motor functions are preserved. No other positive findings. SURGICAL PATHOLOGY As previously recorded. RADIOLOGY CT OF THE BRAIN 12/06/2015. IMPRESSION: There is bony metastatic disease to the clivus and multiple lesions in the brain highly suspicious for metastatic disease, one of them in the right frontal area could be hemorrhage. CHEST X-RAY 12/05/2016. IMPRESSION: Extensive bony metastatic disease. Lung nodules are difficult to exclude. BRAIN MRI December 02, 2016. IMPRESSION: Bony metastatic deposit in the cerebellum and cerebrum, no midline shift. A 1.4 cm lesion in the right frontal lobe shows associated hemorrhage. ASSESSMENT A 66-year-old white female diagnosed with metastatic lung carcinoma to the brain. The patient is being evaluated for palliative radiotherapeutic treatment options. PLAN I had extensive discussion with the patient and her family members. I have discussed this case personally with Dr. Perera and Dr. Santos. At the present time, after reviewing the MRI, the patient has over 20 lesions that I can count, therefore I think it would be best for her to get whole-brain radiation therapy especially since there appears to be a clivus lesion. I would recommend we start with the whole brain and get an MRI of the brain in 4-6 weeks after completion to determine if any of those lesions will need a radiosurgery boost. I discussed the merits of the radiation therapy with the patient and family members. We discussed side effects and complications to include but to be limited to weakness and fatigue, decreased blood counts, loss of hair which could be permanent, bone damage and fracture, brain damage, brain necrosis which may require prolonged use of steroids and eventual surgery, decrease in cognitive functions, short-term memory, long-term memory loss, decreased hearing, loss of hearing, decreased vision, loss of vision, leukoencephalopathy of the brain. After a thorough discussion the patient understood everything that was explained. All their questions were answered from the patient and family members. She wanted to move forward with radiation therapy. The patient to be simulated tomorrow to start radiation therapy as soon as possible. The patient is advised, if I could be of any further assistance to please let me know, otherwise we will proceed as above. Dr. Perera, thank you very much for placing this consult and for asking me to participate in the care of this patient. Should you have any further questions or concerns, please do not hesitate to contact me. Tin Tejeda MD Radiation Oncologist TABITHA JIMENEZ/AILIN /5:39 PM /12:33 PM KORY
[2016-12-07] MEDS ORDERED: AMLO5 PO (14:25)
[2016-12-07] MEDS ORDERED: DEXA4TAB PO (14:25)
[2016-12-07] MEDS ORDERED: PANT40TA3 PO (14:25)
[2016-12-07] MEDS ORDERED: OXYC-392 PO (14:25)
--- NOTE | 2016-12-07 14:25 | HHI.DS ---
Discharge Summary Admission Date Dec 05, 2016 at 15:12 Discharge Date: Dec 07, 2016 Admitting Diagnosis Intracranial hemorrhage with metastic disease to brain (1) Intracranial hemorrhage ICD Code: I62.9 Diagnosis: Principal (2) Metastatic cancer to brain ICD Code: C79.31 Diagnosis: Principal (3) CMC DJD(carpometacarpal degenerative joint disease), localized primary ICD Code: M19.049 Diagnosis: Secondary (4) Stenosing tenosynovitis of finger ICD Code: M65.30 Diagnosis: Secondary (5) Trigger finger of both hands ICD Code: M65.30 Diagnosis: Secondary Procedures none Brief History - From Admission Patient is a very pleasant 66-year-old female right handed with history of metastatic lung cancer stage IV diagnosed in August 2012 with bone metastases, hypertension, pulmonary embolism on Xarelto, depression was pretty much very independent with her the past 3-4 weeks now has been complaining of tingling sensation from the shoulder radiating to the legs with occurring in flashes lasting for a few minutes associated with some chills. Patient denies any loss of consciousness. Patient with COPD complaining of occasional cough but not O2 dependent actually getting stronger. In addition to above complaints patient is also complaining of increasing memory loss. On evaluation here head CT shows mass with some hemorrhagic transformation transformation around it. Patient admitted for further evaluation. Patient looks neurological neurologically well. CBC/BMP: 12/05/16 1455 12/06/16 0430 Significant Findings Laboratory Tests Test 12/05/16 12/06/16 14:55 04:30 Red Blood Count 3.12 MIL/MM3 (4.00-5.30) Hemoglobin 10.3 GM/DL (11.6-15.3) Hematocrit 30.2 % (35.0-46.0) Mean Platelet Volume 6.6 FL (7.0-11.0) Neutrophils (%) (Auto) 81.9 % (16.0-70.0) Lymphocytes (%) (Auto) 6.7 % (9.0-44.0) Monocytes (%) (Auto) 8.9 % (0.0-8.0) Lymphocytes # (Auto) 0.4 TH/MM3 (1.0-4.8) Prothrombin Time 15.4 SEC (9.8-11.6) Activated Partial 35.2 SEC Thromboplast Time (24.3-30.1) Potassium Level 5.3 MEQ/L (3.5-5.1) Blood Urea Nitrogen 19 MG/DL (7-18) 22 MG/DL (7-18) Creatinine 1.25 MG/DL 1.29 MG/DL (0.50-1.00) (0.50-1.00) Estimat Glomerular Filtration 43 ML/MIN (>89) 41 ML/MIN (>89) Rate Troponin I LESS THAN 0.02 NG/ML (0.02-0.05) Antibody Screen POSITIVE Chloride Level 110 MEQ/L (98-107) Random Glucose 143 MG/DL (74-106) Aspartate Amino Transf 12 U/L (15-37) (AST/SGOT) Albumin 3.1 GM/DL (3.4-5.0) Imaging Last Impressions Chest X-Ray 12/05/16 1323 Signed Impressions: Service Date/Time: Monday, December 05, 2016 14:43 - CONCLUSION: Extensive bony metastatic disease and lung nodules are difficult to exclude. Iftikhar Black MD Head CT 12/05/16 0000 Signed Impressions: Service Date/Time: Monday, December 05, 2016 16:21 - CONCLUSION: There is bony metastatic disease to clivus and multiple lesions in the brain highly suspicious for metastatic disease one of them in right frontal area could be hemorrhagic. Iftikhar Black MD PE at Discharge GENERAL: Very pleasant 66 yo female, in bed, appears in nad. CARDIOVASCULAR: Regular rate and rhythm. RESPIRATORY: No accessory muscle use. Clear to auscultation. Breath sounds equal bilaterally. GASTROINTESTINAL: Abdomen soft, non-tender, nondistended. Hepatic and splenic margins not palpable. MUSCULOSKELETAL: Extremities without clubbing, cyanosis, or edema. No obvious deformities. NEUROLOGICAL: Awake and alert. No obvious cranial nerve deficits. Motor grossly within normal limits. Normal speech. Pt update on day of discharge Patient in bed, eating. She appear sin nad. No new motor deficit. Says she was able to ambulate however she feels unsteady. No fever or chills. No n/v/d/c. No change in vision. Normal speech. Hospital Course 66 year old female right handed with Stage IV lung cancer with brain metastases with suspicious small amount of hemorrhage. patient was seen by hem/onc . Hold xarelto started on decadron, Plan for radiation. Discussed with the patient, family at bedside. Patient is able to walk without walker. However she is unsteady. Per oncology patient can be DC after radiation today and to follow up as OP witu Dr Howe , patient already has an appointment on 12/09. Discharged home in stable condition to follow up as OP with PCP and consultants. Stage IV lung cancer with brain metastases with suspicious small amount of hemorrhage Increasing memory loss neuro exam with generalized weakness but- mainly nonfocal Xarelto.discontinued Check neuro vital signs every shift. Patient started on dexamethasone [address] Howe ff XRT- Dr. Shell consulted Get an EEG HypertensioN Acute kidney injury Mild hyperkalemia Gentle fluids. Clonidine when necessary Hold Losartan 100 mg daily. due to mildly elevated potassium and MARY change to Amlodpine 5 mg po daily History of depression. Continue Excitalopram Discussed with patient, nurse, family at bedside, oncology service SCD s Pt Condition on Discharge: Stable Discharge Disposition: Disch w/ Home Health Serv Discharge Time: > 30 minutes Discharge Instructions DIET: Follow Instructions for: Heart Healthy Diet Activities you can perform: Regular-No Restrictions Activities to Avoid: Driving Follow up Referrals: Oncology - 12/09/16 PCP Follow-up - 3-5 Days New Medications: Amlodipine (Norvasc) 5 Mg Tab 2.5 MG PO DAILY Blood Pressure Management #30 TAB Dexamethasone (Dexamethasone) 4 Mg Tab 4 MG PO Q8HR Shortness of Breath #30 TAB Oxycodone (Oxycodone) 5 Mg Tab 5 MG PO Q8H PRN pain >5 #20 TAB Pantoprazole (Pantoprazole) 40 Mg Tab 40 MG PO DAILY gerd #30 TAB Continued Medications: Escitalopram (Escitalopram) 20 Mg Tab 20 MG PO DAILY #30 Ref 0 TAB Fexofenadine HCl (Allergy Relief) 60 Mg Tablet 180 MG PO DAILY Discontinued Medications: Losartan (Losartan) 100 Mg Tab 100 MG PO DAILY Blood Pressure Management #30 Ref 0 TAB Rivaroxaban (Xarelto) 20 Mg Tab 20 MG PO DAILY Blood Clot Prevention Ref 0 TAB Luiza Pat MD Dec 07, 2016 14:25
--- NOTE | 2016-12-07 14:27 | HHI.FF ---
Face to Face Verification Diagnosis: (1) Stenosing tenosynovitis of finger (2) CMC DJD(carpometacarpal degenerative joint disease), localized primary (3) Trigger finger of both hands (4) Intracranial hemorrhage (5) Metastatic cancer to brain Physical Therapy Order: Evaluate and Treat Home Health Nursing Order: Medical education Signs/symptoms of disease process Medication education-adverse effect Nursing assessment with vital signs I have seen patient Lucrecia Hein on 12/07/16. My clinical findings support the need for the requested home health care services because: Ltd mobility - disease progression I certify that my clinical findings support that this patient is homebound because: Post-op weakness Unsteady gait/balance Luiza Pat MD Dec 07, 2016 14:27
[2016-12-07 15:50] VITALS: BP 143/69; PULSE 79; RESP 20; TEMP 96.2; O2SAT 94
== END 2016-12-07 17:34 | disposition home health service (06) | DRG 64 ==
LOC: NEPC 13:10 → NEDH 15:12 → NEDA 15:12 → UNDOADMIN 15:12 → NEDH 20:35 → HOCA 20:35
PROVIDERS: ADMIT Hospitalist; ATTEND Hospitalist
DX: I62.9 Nontraumatic intracranial hemorrhage, unspecified (principal); G93.6 Cerebral edema; N17.9 Acute kidney failure, unspecified; C79.31 Secondary malignant neoplasm of brain; C79.51 Secondary malignant neoplasm of bone; C34.90 Malignant neoplasm of unspecified part of unspecified bronchus or lung; J44.9 Chronic obstructive pulmonary disease, unspecified; D64.9 Anemia, unspecified; I10 Essential (primary) hypertension; E87.5 Hyperkalemia; F32.9 Major depressive disorder, single episode, unspecified; Z86.711 Personal history of pulmonary embolism; Z79.02 Long term (current) use of antithrombotics/antiplatelets; M19.049 Primary osteoarthritis, unspecified hand; M65.30 Trigger finger, unspecified finger; Z87.891 Personal history of nicotine dependence
CPT/HCPCS: 70450; 71010; 80048; 80053; 81001; 82550; 82552; 84484; 85025; 85610; 85730; 86077; 86850; 86870; 86900; 86901; 86902; 86920; 86922; 93005; 95819; J1100; J2060; J7030; J8540

== ENCOUNTER 2017-03-30 16:45 | Emergency (ER) | payer MEDICARE, BC, OTHER ==
[~2017-03-30] VITALS: Ht 160 cm; Wt 99.5 kg
[~2017-03-30 16:45] MED LIST changes: -1-ME1LIQ PO; +AMLO5 PO; -CEFU1TAB20 PO; -COZA100T PO; +DEXA4TAB PO; +ESCI20TA PO; -FEXO180 PO; +FEXO60TA36 PO; -FOLI1 PO; -GUAI600 PO; -LEXA20TA PO; +OXYC-392 PO; +PANT40TA3 PO; -PRED20 PO; -PROT40TA PO; -RIVA20 PO; -VENTAER INH
[2017-03-30 16:46] VITALS: BP 170/80; PULSE 109; RESP 20; TEMP 98.9; O2SAT 95
--- NOTE | 2017-03-30 18:31 | RADRPT ---
EXAM DATE/TIME: 03/30/2017 17:54 [facility] COMPARISON: No previous studies available for comparison. INDICATIONS : Lower back pain after fall. MEDICAL HISTORY : Cardiovascular disease. Hypertension. Carcinoma, lung. Chemo. SURGICAL HISTORY : Cholecystectomy. Hysterectomy. Colostomy. ENCOUNTER: Initial ACUITY: 1 day PAIN SCORE: 10/10 LOCATION: Bilateral lower back. FINDINGS: 5 views of the lumbar spine show diffuse sclerotic metastases involving the pelvis and lumbar spine. There is a scoliotic curvature with concavity towards the patient's right centered at L3-L4. There is anterior osteophyte production seen at the thoracolumbar junction. No fracture or dislocation. CONCLUSION: 1. Diffuse sclerotic bone metastases. 2. No acute fracture. Tre Tovar Jr., MD on March 30, 2017 at 18:24 Board Certified Radiologist. This report was verified electronically.
--- NOTE | 2017-03-30 18:33 | RADRPT ---
EXAM DATE/TIME: 03/30/2017 17:55 [facility] COMPARISON: No previous studies available for comparison. INDICATIONS : Lower back and sacral pain after fall. MEDICAL HISTORY : Cardiovascular disease. Hypertension. Carcinoma, lung. Chemo. SURGICAL HISTORY : Cholecystectomy. Hysterectomy. Colostomy. ENCOUNTER: Initial ACUITY: 1 day PAIN SCORE: 10/10 LOCATION: Bilateral sacrum. FINDINGS: 3 views of the sacrum and coccyx reveal diffuse sclerotic metastases throughout the pelvis. No fractu re or dislocation. Venous calcific lesions overlie the pelvis. CONCLUSION: 1. Diffuse sclerotic bone metastases. 2. No fracture observed. Tre Tovar Jr., MD on March 30, 2017 at 18:31 Board Certified Radiologist. This report was verified electronically.
--- NOTE | 2017-03-30 19:50 | PD ---
HPI Chief Complaint: Back/ Neck Pain or Injury Time Seen by Provider: 19:34 Travel History International Travel<30 days: No Contact w/Intl Traveler<30days: No Traveled to known affect area: No History of Present Illness HPI patient sees dr al oncologist only. patient has endstage lung ca with mets to bone and brain. today while getting out of car, misstepped and landed on buttock, and low back... painfull and was worried about a fracture. last chemo 1 week ago all:nkda pshx: hyst, gb pmhx: lung ca with brain/back bone mets, copd, PFSH Past Medical History Hx Anticoagulant Therapy: Yes (xarelto) Arthritis: Yes Asthma: No Anxiety: Yes Depression: Yes Heart Rhythm Problems: No Cancer: Yes (stage IV lung cancer) High Cholesterol: No Chemotherapy: Yes Chest Pain: No Congestive Heart Failure: No COPD: Yes Cerebrovascular Accident: No Diabetes: No Diminished Hearing: No GERD: No Hiatal Hernia: No Hypertension: Yes Immune Disorder: No Kidney Stones: No Musculoskeletal: Yes (lytic lesions) Neurologic: Yes (SCIATIC NERVE) Reproductive: No Respiratory: Yes (copd) Immunizations Current: No Migraines: No Radiation Therapy: Yes (2016) Renal Failure: No Seizures: No Sleep Apnea: No Thyroid Disease: No Ulcer: No Menopausal: Yes Past Surgical History Abdominal Surgery: Yes (gallbladder removed) Cholecystectomy: Yes Endocrine Surgery: Yes (thyroid cysts removed) Gynecologic Surgery: Yes (hysterectomy) Hysterectomy: Yes Oral Surgery: Yes (tooth pulled) Social History Alcohol Use: No Tobacco Use: No Substance Use: No Allergies-Medications (Allergen,Severity, Reaction): Coded Allergies: penicillin G (Unverified Allergy, Severe, 01/04/17) Reported Meds & Prescriptions Reported Meds & Active Scripts Active Norvasc (Amlodipine Besylate) 5 Mg Tab 2.5 Mg PO DAILY Oxycodone (Oxycodone HCl) 5 Mg Tab 5 Mg PO Q8H PRN Pantoprazole (Pantoprazole Sodium) 40 Mg Tab 40 Mg PO DAILY Dexamethasone 4 Mg Tab 4 Mg PO Q8HR Reported Allergy Relief (Fexofenadine HCl) 60 Mg Tablet 180 Mg PO DAILY Escitalopram (Escitalopram Oxalate) 20 Mg Tab 20 Mg PO DAILY Review of Systems Except as stated in HPI: all other systems reviewed are Neg Musculoskeletal: Positive: Myalgias, Pain (generalized back aches including tailbone ) Physical Exam Narrative GENERAL: obese, with some contusions onto extremities and lower legs without any lacerations... SKIN: Warm and dry., pale HEAD: Atraumatic. Normocephalic. bald EYES: Pupils equal and round. No scleral icterus. No injection or drainage. ENT: No nasal bleeding or discharge. Mucous membranes pink and moist. NECK: Trachea midline. No JVD. CARDIOVASCULAR: Regular rate and rhythm. RESPIRATORY: No accessory muscle use. Clear to auscultation. Breath sounds equal bilaterally. GASTROINTESTINAL: Abdomen soft, non-tender, nondistended. MUSCULOSKELETAL: Extremities without clubbing, cyanosis, or edema. No obvious deformities. NEUROLOGICAL: Awake and alert. No obvious cranial nerve deficits. Motor grossly within normal limits. Five out of 5 muscle strength in the arms and legs. Normal speech. PSYCHIATRIC: Appropriate mood and affect; insight and judgment normal. Data Data Last Documented VS Orders Orders Spine, Lumbar - Ltd (Ap & Lat) (03/30/17 ) Sacrum And Coccyx (03/30/17 ) Comprehensive Metabolic Panel (03/30/17 17:21) Hydromorphone Pf Inj (Dilaudid Pf Inj) (03/30/17 20:00) Ondansetron Odt (Zofran Odt) (03/30/17 20:00) Ed Discharge Order (03/30/17 20:07) Labs Laboratory Tests Test 03/30/17 17:40 Blood Urea Nitrogen 16 MG/DL Creatinine 1.03 MG/DL Random Glucose 95 MG/DL Total Protein 6.5 GM/DL Albumin 2.7 GM/DL Calcium Level 9.4 MG/DL Alkaline Phosphatase 99 U/L Aspartate Amino Transf (AST/SGOT) 13 U/L Alanine Aminotransferase (ALT/SGPT) 16 U/L Total Bilirubin 0.5 MG/DL Sodium Level 141 MEQ/L Potassium Level 3.8 MEQ/L Chloride Level 105 MEQ/L Carbon Dioxide Level 27.4 MEQ/L Anion Gap 9 MEQ/L Estimat Glomerular Filtration Rate 53 ML/MIN [facility] Medical Decision Making Medical Screen Exam Complete: Yes Emergency Medical Condition: Yes Medical Record Reviewed: Yes Differential Diagnosis contusion v fx f laceration Narrative Course on xray no e/o fx, dislocation or subluxation Diagnosis Primary Impression: Contusion Qualified Codes: S30.0XXA - Contusion of lower back and pelvis, initial encounter Patient Instructions: Contusion in Adults (ED), General Instructions Disposition: 01 DISCHARGE HOME Condition: Stable Chele Lezama MD Mar 30, 2017 19:50
[2017-03-30 19:57] LABS: ANION GAP 9 MEQ/L (5-15); AST (GOT) 13 U/L (15-37); BICARBONATE 27.4 MEQ/L (21.0-32.0); BLOOD UREA NITROGEN 16 MG/DL (7-18); CHLORIDE 105 MEQ/L (98-107); GLOMERULAR FILTRATION RATE 53 ML/MIN (>89); POTASSIUM 3.8 MEQ/L (3.5-5.1); SODIUM (NA) 141 MEQ/L (136-145)
[2017-03-30 19:59] LABS: ALKALINE PHOSPHATASE 99 U/L (45-117); ALT (GPT) 16 U/L (10-53); TOTAL BILIRUBIN ADULT 0.5 MG/DL (0.2-1.0)
[2017-03-30] MEDS ORDERED: ONDANSETRON ODT 4 MG TAB PO ONE (20:00)
[2017-03-30] MEDS ORDERED: HYDROmorphone HCL PF 1 MG/ML VIAL IM ONE (20:00)
[2017-03-30 20:25] VITALS: RESP 16
== END 2017-03-30 20:37 | disposition home or self-care (01) ==
LOC: NEPE 16:45
DX: S30.0XXA Contusion of lower back and pelvis, initial encounter (principal); C34.90 Malignant neoplasm of unspecified part of unspecified bronchus or lung; C79.31 Secondary malignant neoplasm of brain; C79.51 Secondary malignant neoplasm of bone; I10 Essential (primary) hypertension; J44.9 Chronic obstructive pulmonary disease, unspecified; W19.XXXA Unspecified fall, initial encounter; Y93.89 Activity, other specified
CPT/HCPCS: 72100; 72220; 80053; 96372; 99284; J1170